=== PATIENT | female | born 1995 | race Caucasian/White ===

== ENCOUNTER 2024-07-19 05:30 | Inpatient (IN) | payer OTHER ==
[2024-07-18 11:10] LABS: #Basophils 0.01 10x3/uL (0.0-0.2); #Eosinphils 0.07 10x3/uL (0.0-0.5); #Monocytes 0.46 10x3/uL (0.0-1.1); #Neutrophils 5.12 10x3/uL (1.5-8.4); %Basophils 0.1 % (0.0-2.0); %Lymphocytes 20.4 % (18.0-47.0); %Monocytes 6.4 % (0.0-10.0); %Neutrophils 71.7 % (40.0-75.0); Hematocrit 35.9 % (34.9-44.5); Hemoglobin 11.3 g/dL (12.0-15.5); Mean Corpuscular HGB CONC 31.5 g/dL (32.0-36.0); Mean Corpuscular Hemoglobin 27.4 pg (27.0-33.0); Mean Corpuscular Volume 86.9 fL (81.6-98.3); Mean Platelet Volume 10.6 fL (7.4-10.4); Platelet Count 208 10x3/uL (150-450); RBC Distribution Width 14.5 % (11.5-14.5); Red Blood Cell (RBC) Count 4.13 10x6/uL (3.90-5.03); White Blood Cell (WBC) Count 7.2 10x3/uL (3.5-10.5)
[2024-07-18 11:40] LABS: Syphilis Antibody Nonreactive (Nonreactive); Syphilis Antibody Index 0.05 S/CO (<1.00 Non-Reactive)
[2024-07-18 11:41] LABS: HBsAg Index 0.21 S/CO (0-0.99); Hep B Surf Ag Non-Reactive S/CO (NonReactive)
[2024-07-19] MEDS ORDERED: Lactated Ringer's 1,000 ML IV SCH (06:32)
[2024-07-19] MEDS ORDERED: Misoprostol 200 MCG TAB PR PRN ×2 (06:32→08:53)
[2024-07-19] MEDS ORDERED: Oxytocin 30 units/NS 500 ML 500 ML IV SCH (06:32)
[2024-07-19] MEDS ORDERED: Carboprost 250 MCG/ML AMP IM PRN (06:32)
[2024-07-19] MEDS ORDERED: hydrALAZINE 20 MG/ML VIAL SLOW IVP PRN ×2 (06:32→08:53)
[2024-07-19] MEDS ORDERED: Ondansetron PF 4 MG/2 ML Vial IVP PRN ×3 (06:32→10:10)
[2024-07-19] MEDS ORDERED: Methylergonovine 0.2 MG/ML VIAL IM PRN ×2 (06:32→08:53)
[2024-07-19] MEDS ORDERED: Famotidine/PF 20 mg/2ml Vial SLOW IVP PRN (06:32)
[2024-07-19] MEDS ORDERED: Diphenoxylate HCl/Atropine Tablet PO PRN ×2 (06:32)
[2024-07-19] MEDS ORDERED: Promethazine HCl 25 MG/ML VIAL IM PRN ×3 (06:32→10:10)
[2024-07-19] MEDS ORDERED: Bicitra 30 ML UDCUP PO PRN (06:32)
[2024-07-19 06:33] VITALS: BMI 37.4
[2024-07-19] MEDS: CEFAZOLIN 2 GM in Sodium Chloride 0.9% 100 ML IVPB SCH (07:05)
[2024-07-19] MEDS ORDERED: Acetaminophen 325 MG TAB PO PRN ×2 (08:53→10:09)
[2024-07-19] MEDS ORDERED: HYDROcodone/Acetaminophen 5/325 mg Tablet PO PRN (08:53)
[2024-07-19] MEDS ORDERED: Simethicone Chewable 80 MG TAB PO PRN (08:53)
[2024-07-19] MEDS ORDERED: ePHEDrine Sulfate 50 MG/10 ML VIAL SLOW IVP PRN (10:09)
[2024-07-19] MEDS ORDERED: diphenhydrAMINE 50 MG/ML VIAL IVP PRN ×2 (10:09→10:10)
[2024-07-19] MEDS ORDERED: Naloxone HCl 0.4 mg/ml Vial IVP PRN ×4 (10:09→10:10)
[2024-07-19] MEDS ORDERED: Moisturizing Cream (Eucerin) 113 GM JAR TOP PRN ×2 (10:09→10:10)
[2024-07-19] MEDS ORDERED: fentaNYL 50 mcg/mL 1 mL Vial SLOW IVP PRN (10:10)
[2024-07-19] MEDS ORDERED: Meperidine HCl/PF 25 MG (1 mL) VIAL SLOW IVP PRN (10:10)
[2024-07-19] MEDS ORDERED: Naloxone HCl 0.4 mg/ml Vial IV PRN (10:10)
[2024-07-19] MEDS ORDERED: fentaNYL 2 mcg/Ropivacaine 0.2% Epidural 100 ML CADD EPIDURAL SCH (10:15)
[2024-07-19] MEDS ORDERED: Communication Order-Pharmacy FS SCH ×2 (10:15)
[2024-07-19] MEDS ORDERED: Lactated Ringer's 500 ML IV PRN (10:35)
[2024-07-19] MEDS: Ketorolac Tromethamine 30 MG (1 mL) VIAL IVP SCH (11:32)
[2024-07-19] MEDS: Ondansetron PF 4 MG/2 ML Vial IVP PRN (12:18)
[2024-07-19] MEDS ORDERED: Ibuprofen 800 MG TAB PO SCH (14:00)
[2024-07-19] MEDS: Erythromycin Base 0.5% Oint 1 GM TUBE ONE (16:01)
[2024-07-19] MEDS: Phytonadione Neonatal 1 MG/0.5 ML AMP ONE (16:01)
[2024-07-19] MEDS: Hepatitis B Vaccine 10 MCG/0.5 ML SYR ONE (16:01)
[2024-07-19] MEDS: Oxytocin 10 UNITS/ML VIAL ONE ×2 (16:02→16:03)
[2024-07-19] MEDS: ePHEDrine Sulfate 50 MG/10 ML VIAL ONE ×2 (16:02)
[2024-07-19] MEDS: Morphine PF 10 MG/10 ML VIAL ONE (16:02)
[2024-07-19] MEDS: Dexmedetomidine 200 MCG/2 ML VIAL ONE (16:02)
[2024-07-19] MEDS: PHENYLEPHRINE-NS 100 MCG/ML 10 ML SYRINGE ONE ×2 (16:02)
[2024-07-19] MEDS: Boostrix 0.5 ML (Tdap) VIAL (>/=7 yrs of age) IM ONE (16:03)
[2024-07-19] MEDS: Docusate 100 MG CAP PO SCH (16:03)
[2024-07-19] MEDS: Prenatal Vitamin 1 TAB PO SCH (16:03)
[2024-07-19] MEDS: Ketorolac Tromethamine 30 MG (1 mL) VIAL IVP PRN (17:57)
[2024-07-19] MEDS: Calcium Carbonate 500 MG ChewTAB PO PRN (21:50)
[2024-07-20] MEDS: Ibuprofen 800 MG TAB PO SCH (00:06)
[2024-07-20 04:22] LABS: Hematocrit 30.6 % (34.9-44.5); Hemoglobin 9.5 g/dL (12.0-15.5); Mean Corpuscular Hemoglobin 27.4 pg (27.0-33.0); Mean Corpuscular Volume 88.2 fL (81.6-98.3); Mean Platelet Volume 10.4 fL (7.4-10.4); Platelet Count 166 10x3/uL (150-450); RBC Distribution Width 14.7 % (11.5-14.5); Red Blood Cell (RBC) Count 3.47 10x6/uL (3.90-5.03); White Blood Cell (WBC) Count 7.6 10x3/uL (3.5-10.5)
[2024-07-20] MEDS: Acetaminophen 500 MG TAB PO PRN (10:41)
[2024-07-21 07:43] VITALS: BP 128/82; TEMP 97.7
== END 2024-07-21 15:35 | disposition home or self-care (01) | DRG 788 ==
LOC: CSHLD 05:30 → CSHPP 12:00
PROVIDERS: ADMIT Obstetrics & Gynecology; ATTEND Obstetrics & Gynecology
PROC: 10D00Z1 Extraction of Products of Conception, Low, Open Approach (ICD-10-PCS; principal; 2024-07-19)
DX: O34.211 Maternal care for low transverse scar from previous cesarean delivery (principal); Z3A.39 39 weeks gestation of pregnancy; O99.824 Streptococcus B carrier state complicating childbirth; Z88.2 Allergy status to sulfonamides; Z88.5 Allergy status to narcotic agent; Z79.899 Other long term (current) drug therapy
CPT/HCPCS: 36415; 51702; 85025; 85027; 86780; 86850; 86900; 86901; 87340; J1885; J2274; J2405; J2590